=== PATIENT | male | born 1985 | race Caucasian/White ===

== ENCOUNTER → 2017-11-08 | Outpatient (REF) ==
[~2017-11-08] MED LIST: ACYC800T99 PO; AMOX-559 PO; AUGMENTIN 875 MG; CLON-303 PO; LEVO-85 PO; MAGIC; NO ROUTINE MEDS; PER PO
--- NOTE | 2017-11-08 10:57 | RADIOLOGY IMAGING REPORT ---
[place] [facility] [place]: Bryan Del Real : 1985 MR: [id number] V: [id number] EXAM DATE: ORDERING PHYSICIAN: GISELLA BECKWITH TECHNOLOGIST: Location: [facility] - [place] Patient: Bryan Del Real : 1985 Visit/Account:[id number] Date of Sevice: 11/08/2017 Exam type: CHEST SINGLE AP History: Work care physical, no chest complaints Comparison: August 15, 2015. Findings: The lungs are free of focal infiltrates, pleural effusions or pulmonary edema. Small ovoid area of i ncreased density projecting over the lateral aspect the right midlung field the cardiac silhouette is normal in size. The trachea is in midline. IMPRESSION: 1. No acute-appearing pulmonary consolidation is identified There is an ovoid area of increased density projecting over the lateral aspect right midlung field sl ightly increased when compared the prior study. This could represent a focal area of scarring or sup erimposed shadow although pulmonary nodule not totally excluded. Short-term interval follow-up chest may be helpful for further evaluation Report Dictated By: Katie Mcwilliams MD at 11/08/2017 10:50 AM Report E-Signed By: Katie Mcwilliams MD at 11/08/2017 10:53 AM WSN:[email or web address]
== END ==
LOC: RAD 09:59
PROVIDERS: ATTEND Physician Assistant
DX: Z02.89 Encounter for other administrative examinations (principal)
CPT/HCPCS: 71045

== ENCOUNTER → 2018-06-07 | Outpatient (CLI) | payer BC, OTHER ==
[~2018-06-07] MED LIST changes: -CLON-303 PO; +CLON-304 PO
--- NOTE | 2018-06-07 16:48 | RADIOLOGY IMAGING REPORT ---
FACILITY: [facility] PATIENT NAME: Bryan Del Real : 1985 MR: [id number] V: [id number] EXAM DATE: ORDERING PHYSICIAN: GISELLA BECKWITH TECHNOLOGIST: Location: [facility] - [place], [place] Patient: Bryan Del Real : 1985 Visit/Account:[id number] Date of Sevice: 06/07/2018 2 VIEWS CHEST INDICATION: Fluid in lungs. COMPARISON: 11/16/2017. FINDINGS: Cardiomediastinal silhouette and pulmonary vessels within normal limits. There is no focal infiltrate or lobar consolidation. There is no pneumothorax or pleural effusion. There is a nodular type foci in the lateral aspect the right midlung which is not significantly taylor ed. No new nodules. Upper abdomen is unremarkable. No acute bony abnormality. IMPRESSION: 1. There is a persistent nodular type opacities seen in the lateral aspect right midlung. Etiology wo uld include postinflammatory scarring, lung nodule or possibly a localized fluid in the fissure. Sugg est a follow-up CT scan of the chest with contrast for further evaluation. 2. The lungs are otherwise clear. Report Dictated By: Gamal Corbin at 06/07/2018 4:41 PM Report E-Signed By: Gamal Corbin at 06/07/2018 4:44 PM WSN:[id number]
== END ==
LOC: RAD 16:15 → EDSTATUS 16:23 → RAD 16:24
PROVIDERS: ATTEND Physician Assistant
DX: R91.8 Other nonspecific abnormal finding of lung field (principal)
CPT/HCPCS: 71046

== ENCOUNTER → 2018-06-30 | Outpatient (CLI) | payer OTHER ==
[~2018-06-30] MED LIST changes: +IOPAMIDOL 76% 75 ML INFUS BTL 75 ML ONE
--- NOTE | 2018-06-30 16:45 | RADIOLOGY IMAGING REPORT ---
FACILITY: [facility] - [place] PATIENT NAME: Bryan Del Real : 1985 MR: [id number] V: [id number] EXAM DATE: ORDERING PHYSICIAN: GISELLA BECKWITH TECHNOLOGIST[place] [facility] [place] Bryan Del [place] : 1985 Visit/Account:[id number] Date of Sevice: 06/30/2018 EXAMINATION: CT Chest With Contrast 06/30/2018 4:00 PM HISTORY: Pulmonary nodule TECHNIQUE: Spiral scan was obtained through the chest during injection of nonionic iodinated intrav enous contrast. Contrast: 75 mL of IV Isovue 370. One of the following dose optimization techniques was utilized in the performance of this exam: Autom ated exposure control; adjustment of the mA and/or kV according to the patient's size; or use of an i terative reconstruction technique. Specific details can be referenced in the facility's radiology C T exam operational policy. COMPARISON STUDIES: Chest x-ray 06/07/2018. FINDINGS: Lungs / pleura: Dominant nodule anterolaterally in the right lower lobe measures 1.3 x 0.9 cm. This has coarse central calcification consistent with postinflammatory or postgranulomatous change. There are clustered additional micronodules around this measuring 3 to 4 mm in size or less. Lungs and pl eural spaces are otherwise clear. Mediastinum / [place]: negative Heart / pericardium: negative Vessels: negative Musculoskeletal / Body wall: negative Lymph node assessment: negative Lower neck: negative Upper abdomen: Tiny nodule lateral to the splenic flexure the colon has a benign appearance, potentia lly an incidental accessory splenule. IMPRESSION: Grouped nodules anterolaterally in the right lower lobe. The largest 1.3 cm focus has central coarse benign-appearing calcification. The appearance would be consistent with a postinfectious or postinf lammatory grouping of nodules. Report Dictated By: Nghia Haynes MD at 06/30/2018 4:35 PM Report E-Signed By: Nghia Haynes MD at 06/30/2018 4:42 PM WSN:[email or web address]
== END ==
LOC: CT 02:08
PROVIDERS: ATTEND Physician Assistant
DX: R91.8 Other nonspecific abnormal finding of lung field (principal)
CPT/HCPCS: 71260; Q9967